=== PATIENT | male | born 1995 | race Two or more races ===

== ENCOUNTER 2019-09-27 21:48 | Emergency (ER) | payer MEDICAID ==
[~2019-09-27] VITALS: Ht 180.3 cm; Wt 61.0 kg
[2019-09-27 23:38] VITALS: BP 121/83
== END 2019-09-28 00:07 | disposition home or self-care (01) ==
LOC: ER 21:48
DX: F20.9 Schizophrenia, unspecified (principal); F32.9 Major depressive disorder, single episode, unspecified; F41.9 Anxiety disorder, unspecified
CPT/HCPCS: 99283